=== PATIENT | female | born 1945 | race Caucasian/White ===

== ENCOUNTER 2020-09-03 15:50 | Emergency (ER) | payer MEDICARE, OTHER ==
[2020-09-03 16:46] LABS: BASOPHIL 0.8 % (0-2); EOSINOPHIL 2.8 % (0-7); HCT 36.6 % (37.0-47.0); HGB 12.3 g/dl (12.5-16.0); LYMPHOCYTE 25.2 % (15-48); MCH 32.6 pg (25.0-31.0); MCHC 33.6 g/dL (32.0-36.0); MCV 97.1 fL (78.0-100.0); MONOCYTE 6.7 % (0-12); NEUTROPHIL 64.3 % (41-80); NRBC 0; PLT 345 K/uL (150-400); RBC 3.77 M/uL (4.20-5.40); RDW 11.9 % (11.5-14.0); WBC 6.2 K/uL (4.0-10.5)
[2020-09-03 17:13] LABS: ALBUMIN 3.6 g/dL (3.4-5.0); BILIRUBIN - TOTAL 0.2 mg/dL (0.2-1.0); BUN/CREAT RATIO (CALC) 21.8 RATIO; CREATININE 0.87 mg/dL (0.51-0.95); POTASSIUM 3.3 mmol/L (3.5-5.1); TOTAL PROTEIN 7.6 g/dL (6.4-8.2)
[2020-09-03 17:37] LABS: BILIRUBIN NEGATIVE (NEGATIVE); BLOOD 2+ Ery/uL (NEGATIVE); CLARITY CLEAR (CLEAR); COLOR YELLOW (YELLOW); GLUCOSE (U) NORMAL (NORMAL); LEUKOCYTES NEGATIVE Leu/uL (NEGATIVE); NITRITE NEGATIVE (NEGATIVE); PROTEIN NEGATIVE (NEGATIVE); UROBILINOGEN 0.2 mg/dL (0.2-1.0)
[2020-09-03 17:46] LABS: BACTERIA TRACE; URINARY RBC RARE; URINARY WBC RARE
[2020-09-03] MEDS ORDERED: ZOFRAN4 M1 PO (18:53)
[2020-09-03] MEDS ORDERED: ANTIVERT25 MG PO (18:53)
== END 2020-09-03 19:15 | disposition home or self-care (01) ==
LOC: FER 15:50
PROVIDERS: Nurse Practitioner Family
DX: R42 Dizziness and giddiness (principal); R11.2 Nausea with vomiting, unspecified; Z87.39 Personal history of other diseases of the musculoskeletal system and connective tissue; Z88.1 Allergy status to other antibiotic agents; Z88.0 Allergy status to penicillin
CPT/HCPCS: 36415; 70450; 80053; 81001; 84484; 85025; 93005; J2405; J7030